=== PATIENT | male | born 1975 | race Caucasian/White ===

== ENCOUNTER 2022-06-11 22:50 | Emergency (ER) | payer OTHER ==
[~2022-06-11] VITALS: Ht 172.7 cm; Wt 79.8 kg
--- NOTE | 2022-06-12 02:25 | NUR ---
Patient was just triaged at this time due to short staffing in the ER (only two nurse schedule in the ER).
--- NOTE | 2022-06-12 04:03 | NUR ---
Patient did not want to wait to seen ERMD and left ER
== END 2022-06-12 04:05 | disposition left against medical advice (07) ==
LOC: ER 22:55
DX: Z53.21 Procedure and treatment not carried out due to patient leaving prior to being seen by health care provider (principal)